=== PATIENT | female | born 1990 ===

== ENCOUNTER 2017-10-04 12:08 | Inpatient (IN) ==
[2017-10-04 13:30] LABS: Apearance,Urine Clear (Clear); Urine Color Yellow (Yellow)
[2017-10-04 13:31] LABS: Bilirubin,Urine Negative (Negative); Blood, Urine Negative (Negative); Glucose,Urine (UA) Negative (Negative); Ketones,Urine Negative (Negative); Nitrite,Urine Negative (Negative); Protein,Urine Negative; Urine Specific Gravity 1.005 (1.001-1.035); Urine Urobilinogen 0.2 EU/DL (0.2-1.0)
[2017-10-04 13:51] LABS: RBC,Urine 0-5 /HPF (0-4); Squamous Epithelial Cell,Urine Few /HPF (0-10)
[2017-10-05] MEDS ORDERED: BUTORPHANOL 2 MG/ML VIAL IV PRN (00:58)
[2017-10-05] MEDS ORDERED: ONDANSETRON 4 MG/2 ML VIAL IV PRN ×2 (00:58→15:29)
[2017-10-05] MEDS ORDERED: LACTATED RINGERS 1,000 ML IV SCH (01:00)
[2017-10-05 01:33] LABS: Basophils % 0.3 % (0.0-0.8); Eosinophils # 0.1 10*3/uL (0.0-0.87); Eosinophils % 0.6 % (0.00-10.9); Hematocrit 33.1 VOL% (35.7-47.0); Hemoglobin 10.6 GM/DL (12.0-16.0); Immature Granulocytes % 0.5 %; Immature Granulocytes Absolute 0.05 #; Lymphocytes % 18.2 % (21.3-54.2); Mean Corpuscular Hemoglobin 29 PG (27-34); Mean Corpuscular Volume 91.9 FL (87-102); Mean Platelet Volume 11.2 FL (9.6-12.0); Monocytes # 0.8 10*3/uL (0.11-0.8); Monocytes % 7.3 % (1.7-12.7); Neutrophils # 8.1 10*3/uL (1.4-7.4); Neutrophils % 73.1 % (38.7-73.9); Platelet Count 308 T/CUMM (130-400)
[2017-10-05] MEDS ORDERED: AMPICILLIN INJ 2,000 MG in SODIUM CHLORIDE 0.9% 100 ML IV ONE (02:00)
[2017-10-05] MEDS ORDERED: OXYTOCIN/LR 20 UNIT/1,000 ML BAG IV SCH (02:00)
[2017-10-05 02:02] LABS: Albumin 2.4 G/DL (3.4-5.0); Bilirubin,Total 0.4 MG/DL (0.2-1.0); Calcium 8.6 MG/DL (8.5-10.1); Osmolality,Calculated 270.8 MOS/KG (273-304); Potassium 4.3 MMOL/L (3.5-5.1); Total Protein 6.7 G/DL (6.4-8.3); Uric Acid 4.4 MG/DL (2.6-6.0)
[2017-10-05] MEDS ORDERED: AMPICILLIN INJ 1,000 MG in SODIUM CHLORIDE 0.9% 100 ML IV SCH (06:00)
[2017-10-05] MEDS ORDERED: LACTATED RINGERS 1,000 ML IV ONE (07:35)
[2017-10-05] MEDS ORDERED: CITRIC ACID/SODIUM CITRATE 30 ML UDCUP PO ONE (07:35)
[2017-10-05] MEDS ORDERED: ePHEDrine 50 MG/ML AMP IV PRN (07:35)
[2017-10-05] MEDS ORDERED: PROMETHAZINE 25 MG/1 ML VIAL IM ONE (07:35)
[2017-10-05] MEDS ORDERED: ONDANSETRON 4 MG/2 ML VIAL IV ONE (07:35)
[2017-10-05] MEDS ORDERED: FAMOTIDINE 20 MG/2 ML VIAL IV ONE (07:35)
[2017-10-05] MEDS ORDERED: diphenhydrAMINE 50 MG/1 ML VIAL IV PRN ×2 (07:35)
[2017-10-05] MEDS ORDERED: hydrOXYzine HCL 25 MG/1 ML VIAL IM PRN (07:35)
[2017-10-05] MEDS ORDERED: fentaNYL 2 MCG/ROPIV 0.2% EPID 150 ML EPIDURAL SCH (08:00)
[2017-10-05 09:53] LABS: Apearance,Urine CLEAR (Clear); Bilirubin,Urine Negative (Negative); Blood, Urine Negative (Negative); Glucose,Urine (UA) Negative (Negative); Ketones,Urine Negative (Negative); Mucus,Urine Occasional /LPF (Occasional); Nitrite,Urine Negative (Negative); Protein,Urine Negative; RBC,Urine 1 /HPF (0-4); Squamous Epithelial Cell,Urine Occasional /HPF (0-10); Urine Color Yellow (Yellow); Urine Specific Gravity 1.011 (1.001-1.035); Urine Urobilinogen < 2.0 EU/DL (0.2-1.0); WBC,Urine <1 /HPF (0-6)
[2017-10-05 10:49] LABS: Rubella Antibody IgG 7.6 IU/ML
[2017-10-05] MEDS ORDERED: LIDOCAINE 1% 50 ML VIAL ONE (12:57)
[2017-10-05] MEDS ORDERED: miSOPROStol 200 MCG TABLET ONE (12:57)
[2017-10-05 14:05] LABS: Cord Venous Blood HCO3 22.8 MMOL/L; Cord Venous Blood PCO2 41.5 MMHG; Cord Venous Blood PO2 35.2
[2017-10-05] MEDS ORDERED: BENZOCAINE 20%/MENTHOL 0.5% SPRAY 56 GM CAN TOP PRN (15:29)
[2017-10-05] MEDS ORDERED: HYDROCORTISONE 2.5% RECTAL CREAM 30 GM TUBE TOP PRN (15:29)
[2017-10-05] MEDS ORDERED: LANOLIN 50% CREAM 0.3 OZ TUBE TOP PRN (15:29)
[2017-10-05] MEDS ORDERED: ACETAMINOPHEN 325 MG TABLET PO PRN (15:29)
[2017-10-05] MEDS ORDERED: DIPH/TET/ACEL PERT BOOSTER VACCINE 0.5 ML VIAL IM ONE (15:29)
[2017-10-05] MEDS ORDERED: WITCH HAZEL PADS 100/JAR TOP PRN (15:29)
[2017-10-05] MEDS ORDERED: MEASLES/MUMPS/RUBELLA VACCINE 0.5 ML VIAL SUBCUT ONE (15:29)
[2017-10-05] MEDS ORDERED: RHO(D) IMMUNE GLOBULIN 300 MCG SYRINGE IM ONE (15:29)
[2017-10-05] MEDS ORDERED: BISACODYL 10 MG SUPP RECTAL PRN (15:29)
[2017-10-05] MEDS ORDERED: oxyCODONE/ACETAMINOPHEN 5-325 MG TABLET PO PRN (15:29)
[2017-10-05] MEDS ORDERED: OXYTOCIN/LR 20 UNIT/1,000 ML BAG IV ONE (15:29)
[2017-10-05] MEDS: IBUPROFEN 800 MG TABLET PO PRN (15:40)
[2017-10-05] MEDS: oxyCODONE/ACETAMINOPHEN 5-325 MG TABLET PO PRN (15:40)
[2017-10-05] MEDS: DOCUSATE SODIUM 100 MG CAPSULE PO SCH (20:54)
[2017-10-06] MEDS ORDERED: BENZOCAINE/MENTHOL LOZENGE 18/BOX PO PRN (02:00)
[2017-10-06 07:04] LABS: Basophils % 0.4 % (0.0-0.8); Eosinophils # 0.1 10*3/uL (0.0-0.87); Eosinophils % 1.1 % (0.00-10.9); Hematocrit 29.3 VOL% (35.7-47.0); Hemoglobin 9.5 GM/DL (12.0-16.0); Immature Granulocytes % 0.5 %; Immature Granulocytes Absolute 0.05 #; Lymphocytes # 1.7 10*3/uL (1.4-4.0); Lymphocytes % 18.8 % (21.3-54.2); Mean Corpuscular HGB Conc 32.4 GM/DL (32-36); Mean Corpuscular Hemoglobin 30 PG (27-34); Mean Corpuscular Volume 92.1 FL (87-102); Monocytes # 0.8 10*3/uL (0.11-0.8); Monocytes % 8.7 % (1.7-12.7); Neutrophils # 6.4 10*3/uL (1.4-7.4); Neutrophils % 70.5 % (38.7-73.9); Platelet Count 259 T/CUMM (130-400); Red Blood Count 3.18 MC/CUMM (3.8-5.5); Red Cell Distribution Width 15.9 % (9.3-17.3); White Blood Count 9.1 T/CUMM (4-12)
[2017-10-06] MEDS: IBUPROFEN 800 MG TABLET PO PRN ×2 (08:43→19:33)
[2017-10-06] MEDS: oxyCODONE/ACETAMINOPHEN 5-325 MG TABLET PO PRN (08:44)
[2017-10-06] MEDS: DOCUSATE SODIUM 100 MG CAPSULE PO SCH ×2 (08:45→20:56)
[2017-10-07 07:25] VITALS: BP 119/71
[2017-10-07] MEDS: DOCUSATE SODIUM 100 MG CAPSULE PO SCH (09:39)
[2017-10-07] MEDS: IBUPROFEN 800 MG TABLET PO PRN (09:40)
== END 2017-10-07 13:45 | disposition home or self-care (01) | DRG 775 ==
LOC: N.LDOUT 12:08 → N.LD 12:12 → N.OB 10-05 15:23
PROVIDERS: ADMIT Obstetrics & Gynecology; ATTEND Obstetrics & Gynecology

== ENCOUNTER 2021-04-01 13:54 | Inpatient (IN) ==
[2021-04-01] MEDS ORDERED: MEPERIDINE 50 MG/1 ML VIAL IV PRN (14:38)
[2021-04-01] MEDS ORDERED: ONDANSETRON 4 MG/2 ML VIAL IV PRN (14:38)
[2021-04-01] MEDS ORDERED: BUTORPHANOL 2 MG/ML VIAL IV PRN (14:38)
[2021-04-01] MEDS ORDERED: ePHEDrine 50 MG/ML VIAL IV PRN (14:40)
[2021-04-01] MEDS ORDERED: LACTATED RINGERS 1,000 ML IV ONE (14:40)
[2021-04-01] MEDS ORDERED: CITRIC ACID/SODIUM CITRATE 30 ML UDCUP PO ONE (14:40)
[2021-04-01] MEDS ORDERED: NALOXONE 0.4 MG/ML VIAL IV PRN (14:40)
[2021-04-01] MEDS ORDERED: FAMOTIDINE 20 MG/2 ML VIAL IV ONE (14:40)
[2021-04-01] MEDS ORDERED: LACTATED RINGERS 1,000 ML IV SCH ×2 (15:00)
[2021-04-01] MEDS ORDERED: fentaNYL 2 MCG/ROPIV 0.2% EPID 100 ML EPIDURAL SCH (15:00)
[2021-04-01 15:09] LABS: Basophils % 0.3 % (0.0-0.8); Eosinophils % 0.3 % (0.00-10.9); Hematocrit 33.9 VOL% (35.7-47.0); Hemoglobin 11.2 GM/DL (12.0-16.0); Immature Granulocytes % 0.5 %; Immature Granulocytes Absolute 0.05 #; Lymphocytes # 1.5 10*3/uL (1.4-4.0); Mean Corpuscular Volume 91.4 FL (87-102); Mean Platelet Volume 10.7 FL (9.6-12.0); Monocytes % 6.4 % (1.7-12.7); Neutrophils % 76.5 % (38.7-73.9); Platelet Count 245 T/CUMM (130-400); Red Blood Count 3.71 MC/CUMM (3.8-5.5); Red Cell Distribution Width 15.9 % (9.3-17.3); White Blood Count 9.1 T/CUMM (4-12)
[2021-04-01 15:31] LABS: Alanine Aminotransferase 17 U/L (13-56); Albumin 2.2 G/DL (3.4-5.0); Alkaline Phosphatase 195 U/L (45-117); Aspartate Amino Transferase 25 U/L (0-37); Bilirubin,Total < 0.39 MG/DL (0.20-1.00); Blood Urea Nitrogen 7 MG/DL (7-18); Calcium 8.2 MG/DL (8.5-10.1); Carbon Dioxide 23 MMOL/L (21-32); Estimated Glom Filtration Rate 158 ML/MIN; Glucose 79 MG/DL (74-106); Osmolality,Calculated 275.4 MOS/KG (273-304); Potassium 4.1 MMOL/L (3.5-5.1); Sodium 140 MMOL/L (136-145); Total Protein 6.6 G/DL (6.4-8.2)
[2021-04-01] MEDS: OXYTOCIN/LR 20 UNIT/1,000 ML BAG IV SCH ×2 (17:09→21:34)
[2021-04-01 17:34] LABS: Bacteria,Urine Occasional /HPF (Few); Bilirubin,Urine Negative (Negative); Blood, Urine Negative (Negative); Glucose,Urine (UA) Negative (Negative); Ketones,Urine Negative (Negative); Mucus,Urine Occasional /LPF (Occasional); Nitrite,Urine Negative (Negative); Protein,Urine 100 MG/DL; RBC,Urine 3 /HPF (0-4); Squamous Epithelial Cell,Urine Few /HPF (0-10); Urine Appearance Slightly Hazy (Clear); Urine Color Yellow (Yellow); Urine Specific Gravity 1.018 (1.001-1.035); Urine Urobilinogen < 2.0 EU/DL (0.2-1.0)
[2021-04-01] MEDS ORDERED: miSOPROStoL 200 MCG TABLET ONE (17:34)
[2021-04-01] MEDS ORDERED: OXYTOCIN/LR 0 UNIT/0 ML BAG IV ONE (17:34)
[2021-04-01] MEDS ORDERED: METHYLERGONOVINE 0.2 MG/1 ML AMP ONE (17:34)
[2021-04-01] MEDS ORDERED: TRANEXAMIC ACID 1,000 MG/10 ML VIAL ONE (17:34)
[2021-04-01] MEDS ORDERED: SODIUM CHLORIDE 0.9% 0 ML IV ONE (17:35)
[2021-04-01] MEDS ORDERED: CARBOPROST TROMETHAMINE 250 MCG/ML AMP IM ONE (17:35)
[2021-04-01 18:01] LABS: Cord Venous Blood HCO3 22.6 MMOL/L; Cord Venous Blood PCO2 46.6 MMHG; Cord Venous Blood PO2 31.6
[2021-04-01] MEDS ORDERED: IBUPROFEN 800 MG TABLET PO ONE (20:56)
[2021-04-01] MEDS ORDERED: HYDROCORTISONE 2.5% RECTAL CREAM 30 GM TUBE TOP PRN (22:36)
[2021-04-01] MEDS ORDERED: MEASLES/MUMPS/RUBELLA VACCINE 0.5 ML VIAL SUBCUT ONE (22:36)
[2021-04-01] MEDS ORDERED: ACETAMINOPHEN 325 MG TABLET PO PRN (22:36)
[2021-04-01] MEDS ORDERED: LANOLIN 50% CREAM 0.3 OZ TUBE TOP PRN (22:36)
[2021-04-01] MEDS ORDERED: BISACODYL 10 MG SUPP RECTAL PRN (22:36)
[2021-04-01] MEDS ORDERED: WITCH HAZEL PADS 100/JAR TOP PRN (22:36)
[2021-04-01] MEDS ORDERED: OXYTOCIN/LR 20 UNIT/1,000 ML BAG IV ONE (22:36)
[2021-04-01] MEDS ORDERED: BENZOCAINE 20%/MENTHOL 0.5% SPRAY 56 GM CAN TOP PRN (22:36)
[2021-04-01] MEDS ORDERED: DIPH/TET/ACEL PERT BOOSTER VACCINE 0.5 ML VIAL IM ONE (22:36)
[2021-04-01] MEDS ORDERED: oxyCODONE/ACETAMINOPHEN 5-325 MG TABLET PO PRN (22:36)
[2021-04-01] MEDS ORDERED: RHO(D) IMMUNE GLOBULIN 300 MCG SYRINGE IM ONE (22:36)
[2021-04-01] MEDS ORDERED: oxyCODONE/ACETAMINOPHEN 5-325 MG TABLET ONE (22:40)
[2021-04-01] MEDS: oxyCODONE/ACETAMINOPHEN 5-325 MG TABLET PO PRN (22:42)
[2021-04-02] MEDS: DOCUSATE SODIUM 100 MG CAPSULE PO SCH ×4 (01:50→21:00)
[2021-04-02 06:01] LABS: Basophils # 0.1 10*3/uL (0.0-0.2); Basophils % 0.5 % (0.0-0.8); Eosinophils # 0.1 10*3/uL (0.0-0.87); Eosinophils % 1.2 % (0.00-10.9); Hematocrit 30.9 VOL% (35.7-47.0); Immature Granulocytes % 0.4 %; Immature Granulocytes Absolute 0.04 #; Mean Corpuscular HGB Conc 32.4 GM/DL (32-36); Mean Corpuscular Volume 91.7 FL (87-102); Monocytes % 8.3 % (1.7-12.7); Neutrophils % 68.6 % (38.7-73.9); Platelet Count 206 T/CUMM (130-400); Red Blood Count 3.37 MC/CUMM (3.8-5.5); Red Cell Distribution Width 15.9 % (9.3-17.3); White Blood Count 9.3 T/CUMM (4-12)
[2021-04-02] MEDS: IBUPROFEN 800 MG TABLET PO PRN ×2 (07:45→20:59)
[2021-04-02] MEDS: oxyCODONE/ACETAMINOPHEN 5-325 MG TABLET PO PRN ×2 (09:55→16:43)
[2021-04-02] MEDS ORDERED: ONDANSETRON 4 MG TABLET PO PRN (13:52)
[2021-04-03 08:04] VITALS: BP 136/75
[2021-04-03] MEDS ORDERED: MAGNESIUM HYDROXIDE SUSP 30 ML UDCUP PO PRN (08:58)
[2021-04-03] MEDS: DOCUSATE SODIUM 100 MG CAPSULE PO SCH (09:21)
== END 2021-04-03 11:55 | disposition home or self-care (01) | DRG 807 ==
LOC: N.LDOUT 13:54 → N.LD 13:57 → N.OB 22:37
PROVIDERS: ADMIT Obstetrics & Gynecology; ATTEND Obstetrics & Gynecology